=== PATIENT | male | born 1990 | race Two or more races ===

== ENCOUNTER 2021-02-16 12:44 | Emergency (ER) | payer OTHER ==
[~2021-02-16] VITALS: Ht 185.4 cm; Wt 136.1 kg
[2021-02-16] MEDS ORDERED: ORPHENADRINE C100 MG PO (17:23)
[2021-02-16] MEDS ORDERED: KETO10TA2 PO (17:23)
== END 2021-02-16 17:41 ==
LOC: ER 12:44
DX: R07.9 Chest pain, unspecified (principal)